=== PATIENT | female | born 1970 | race Caucasian/White ===

== ENCOUNTER 2018-05-19 07:49 | Day surgery (SDC) | payer OTHER ==
[2018-05-19] MEDS ORDERED: PROPOFOL 500 MG/50 ML VIAL IV ONE (08:30)
[2018-05-19] MEDS ORDERED: SALINE FLUSH 10 ML DISP.SYRIN IVF ONE (08:30)
[2018-05-19] MEDS ORDERED: LIDOCAINE HCL/PF 2% 100 MG/5 ML VIAL IJ ONE (08:30)
[2018-05-19] MEDS ORDERED: PROPOFOL 200 MG/20 ML VIAL IV ONE (08:30)
--- NOTE | 2018-05-19 11:49 | GI Report ---
REFERRING PHYSICIAN: Dr. Tequila Mane [employer]: Silviano Turcios MD PROCEDURE MEDICATION: Propofol as per anesthesia. INDICATIONS: This 47-year-old woman is referred because her father had colon cancer in his 60s and had a second colon cancer. Patient had a colonoscopy 8 years ago, I think, in [place] which reportedly was fine. Father is also a diabetic. Patient denies obvious bleeding or change in bowel habits or abdominal surgeries. On exam, she weighs 147 kilograms and carries that centrally. Lungs with decreased breath sounds. Heart is regular. PROCEDURE PERFORMED: Colonoscopy. PROCEDURE: An Olympus video colonoscope was advanced to the rectum. The prep was fair. Atonic redundant colon. It took 2 nurse compression and reducing loops to finally reach the base of the cecum. We did have to lavage several areas of the colon because the prep was only fair. The appendiceal orifice and ileocecal valve were identified. On slow withdrawal, the cecum and ascending colon had redundancy. No obvious intraluminal lesions noted. The descending colon and sigmoid, again, redundancy. No obvious intraluminal lesions were noted. Retroflexion of the rectum was normal. Patient tolerated the procedure well. FINDINGS: 1. A very atonic redundant colon. 2. Fair prep. RECOMMENDATIONS: 1. Again, patients with central obesity are a higher risk for colon cancer and she has a family history. 2. Dietary changes would be beneficial. Basically, trying to eliminate most carbohydrates, eat more lean meats, fruits, and vegetables. Avoid artificial sweeteners or sweeteners in general. 3. Exercise working 30 minutes a day is also beneficial at decreasing colon cancer risk. 4. Consider re-looking at her colon in 5 years. 5. She is to follow up with Dr. Mane. cc: Dr. Tqeuila STARKEY
== END 2018-05-19 07:50 ==
LOC: OPSURG 07:49
PROVIDERS: ATTEND Internal Medicine Gastroenterology
DX: Z12.11 Encounter for screening for malignant neoplasm of colon (principal); K59.8 Other specified functional intestinal disorders; Z80.0 Family history of malignant neoplasm of digestive organs
CPT/HCPCS: 81025; J2001; J2704; 45378; S1016